=== PATIENT | female | born 1935 | race Caucasian/White ===

== ENCOUNTER 2020-11-13 09:56 | Observation (INO) | payer MEDICARE, BC ==
[~2020-11-13] VITALS: Ht 157.5 cm; Wt 43.4 kg
[2020-11-13 10:28] LABS: BASO # 0.1 (0.0-0.2); BASO % 0.3 % (0.0-2.0); EOS # 0.1 (0.0-0.7); EOS % 0.3 % (0-4.0); GRAN # 15.5 (1.4-6.5); GRAN % 82.6 % (42.2-75.2); HEMATOCRIT 39.5 % (37.0-47.0); HEMOGLOBIN 12.8 g/dl (12.5-16.0); LYMPH # 1.9 (1.2-3.4); LYMPH % 10.3 % (20.0-51.0); MEAN CELL VOLUME 102 fl (80.0-100.0); MEAN CORPUSCULAR HEMOGLOBIN 33 pg (27.0-31.0); MEAN CORPUSCULAR HGB CONC 32 g/dl (33.0-37.0); MEAN PLATELET VOLUME 8.8 fl (7.4-10.4); MONO # 1.1 (0.1-0.6); MONO % 5.6 % (1.7-9.3); PLATELET COUNT 338 K/mm3 (130-400); RED BLOOD COUNT 3.87 M/mm3 (4.10-5.30); REDCELL DISTRIBUTION WIDTH-CV 13.2 % (11.5-14.5)
[2020-11-13 10:36] LABS: ALBUMIN 4.1 gm/dL (3.5-5.0); BILIRUBIN,TOTAL 0.5 mg/dL (0.0-1.0); CALCIUM 9.7 mg/dL (8.4-10.2); CREATININE, serum 0.77 (0.52-1.25); POTASSIUM 4.2 mmol/L (3.4-5.0); TOTAL PROTEIN 8.9 gm/dL (6.4-8.2)
[2020-11-13] MEDS ORDERED: TYLENOL 8 HR PO (10:39)
[2020-11-13] MEDS ORDERED: TIMOPTIC 0.25%-5 OP (10:39)
[2020-11-13 10:51] LABS: COLLECTION METHOD CLEAN CATCH
[2020-11-13 11:02] LABS: MUCOUS Present /lpf; PH 7 (5-8); SQUAMOUS EPITHELIAL 0-2 /hpf; URINE APPEARANCE Clear; URINE BACTERIA None Seen /hpf; URINE BILIRUBIN Negative (NEGATIVE); URINE BLOOD Negative (NEGATIVE); URINE COLOR Yellow; URINE GLUCOSE Negative (NEGATIVE); URINE KETONE Negative (NEGATIVE); URINE LEUKOCYTE ESTERASE Trace (NEGATIVE); URINE NITRATE Negative (NEGATIVE); URINE PROTEIN(semi-quant) Negative (NEGATIVE); URINE RBC 0-2 /hpf; URINE UROBILINOGEN Negative (NEGATIVE)
--- NOTE | 2020-11-13 12:48 | NUR ---
SW will meet with patient and patient's son to provide home health resource packet. Nothing follows.
[2020-11-13] MEDS ORDERED: ZIOPTAN OU (15:18)
[2020-11-13] MEDS ORDERED: PRESERVISION1 SGL PO (15:19)
[2020-11-13] MEDS ORDERED: ORAL PAIN REL9.35 GM MM (15:20)
[2020-11-13] MEDS ORDERED: ROBITUSSIN100 MG/5 M PO (15:20)
[2020-11-13 16:33] VITALS: BP 120/70; PULSE 86; TEMP 97.6
[2020-11-13 17:05] VITALS: BP 120/60; BP 120/70; PULSE 83; PULSE 88; TEMP 97.6
[2020-11-13 17:07] VITALS: BP 98/41; PULSE 80; TEMP 97.6
--- NOTE | 2020-11-13 18:34 | NUR ---
PATIENT HAD QUIET DAY, INDEPENDANT IN ROOM. NO C/O OR NEEDS NOTED AT THIS TIME
--- NOTE | 2020-11-13 18:35 | NUR ---
PATIENT VERY PLESANT, EATS SOFT FOODS AND NEEDS ASSISTANCE WITH FOOD ORDERING HER EYESIGHT IS VERY POOR. PATIENT IS WEARING PANTIES WITH PADS FOR STRESS INCONTINENCE WITH COUGHING. UP TO BS WITH ASSIST OF 1. NO NEEDS AT THIS TIME.
[2020-11-13 19:41] VITALS: BP 125/44; PULSE 92; TEMP 98.2
--- NOTE | 2020-11-13 20:45 | NUR ---
Patient assessed at this time. Alert and oriented x 4, and able to make needs known. Complained of aching all over. Given PRN Acetaminophen per orders. Peripheral IV to left forearm with fluids running per orders. Site without redness, warmth, swelling, and pain. Denies SOB and dsypnea. LS CTA. Respirations even and unlabored. HRR. Capillary refill less than 3 seconds. Non-tenting skin turgor. BSAx4. Abdomen soft and non-tender. No edema. Voices no questions, needs, or concerns at this time. Resting in bed with call light within reach.
[2020-11-13 23:51] VITALS: BP 109/51; PULSE 86; TEMP 98.2
[2020-11-14 04:39] VITALS: BP 134/56; PULSE 86; TEMP 98.8
--- NOTE | 2020-11-14 05:50 | NUR ---
Patient has not had any further complaints of pain or discomfort this shift. Has been resting in bed with call light within reach. IV fluids continue per orders. Voices no questions, needs, or concerns at this time.
[2020-11-14 06:25] LABS: BASO % 0.2 % (0.0-2.0); EOS # 0.2 (0.0-0.7); EOS % 1.4 % (0-4.0); GRAN # 11.6 (1.4-6.5); GRAN % 78.4 % (42.2-75.2); LYMPH # 1.9 (1.2-3.4); MEAN CELL VOLUME 104 fl (80.0-100.0); MEAN CORPUSCULAR HGB CONC 32 g/dl (33.0-37.0); MEAN PLATELET VOLUME 9.1 fl (7.4-10.4); MONO # 0.9 (0.1-0.6); MONO % 6.3 % (1.7-9.3); PLATELET COUNT 259 K/mm3 (130-400); RED BLOOD COUNT 3.15 M/mm3 (4.10-5.30); REDCELL DISTRIBUTION WIDTH-CV 13.3 % (11.5-14.5)
[2020-11-14 06:26] LABS: HEMATOCRIT 32.6 % (37.0-47.0); HEMOGLOBIN 10.3 g/dl (12.5-16.0); MEAN CORPUSCULAR HEMOGLOBIN 33 pg (27.0-31.0)
[2020-11-14 06:41] LABS: CALCIUM 8.4 mg/dL (8.4-10.2); CREATININE, serum 0.62 (0.52-1.25); POTASSIUM 3.9 mmol/L (3.4-5.0)
[2020-11-14 08:21] VITALS: BP 138/61; PULSE 104; TEMP 99.2
--- NOTE | 2020-11-14 08:44 | NUR ---
ARSEN met with patient Anthony on 11/13/2020. Son reports that patient has been falling at home and will jut slip out of chair. Patient reports that home health is not enough care for patient. Son indicated that the patient requires more care than what she has and they cannot provide the care in her home. ARSEN educated that casemanagement will start to work on a plan of action for patient to enter [facility] if they are both agreeable to the plan. Restaffed to new nurse case manager to follow-up with client.
--- NOTE | 2020-11-14 10:33 | NUR ---
Assessment completed, alert/oriented, vital signs stable, denies pain or discomfort, WBC 14.8 this morning but afebrile, labs/ Cx pending, social work follwoing for discharge planning, patient denies other needs at this time, bed alarm is set and call light in reach
--- NOTE | 2020-11-14 12:17 | NUR ---
First visit from the nursing home aide. No needs right now.
[2020-11-14 12:24] VITALS: BP 117/93; PULSE 86
--- NOTE | 2020-11-14 14:20 | NUR ---
Per ARSEN Gil son Fran requested a call from concerning status and to review why pt is OBS vs INPT status. I called Fran and discussed with him the parameters for status per [facility]. At this time pt is OBS status. I answered all of the son's questions and he voiced understanding. I encouraged him to speak with Louise once again concerning the discharge plans for his mom.
[2020-11-14 14:59] VITALS: BP 143/57; PULSE 93; TEMP 98.6
--- NOTE | 2020-11-14 15:34 | NUR ---
Chief Of Vital Statistics contacted patient's son, Antonio (ph#[phone]) to follow up on discharge planning. Antonio advised that patient was staying in a assisted in [place] (he cannot remember the name off hand) until February 2020. Antoino and his had patient move in with them due to concerns about COVID. Antonio states patient hadn't been using a walker until about three weeks ago after patient had a visit with her daughter. Antonio reports that since then patient has been really weak and has had a couple falls at home. Antonio advised that patient has DPOA-HC that designates him and his two sisters, Robyn and Lexie. Antonio will try to bring in a copy next time he is up to visit. Antonio reports patient was normally independent with most ADLS and that as long as patient can take care of herself, they are willing to have her live with them. Antonio states that his , Lillian normally helps patient bathe and they prepare meals for patient. Antonio states based on what patient is doing right now, he does not feel they can care for her at home at this time. Antonio is interested in post acute rehab for patient. ARSEN explained to Antonio that patient is observation status and that without three inpatient midnights, patient would have to private pay for a assisted. Antonio would like referrals sent to [facility], [facility] in , and [facility] in [place]. Antonio would like these facilities to contact him to discuss pricing. Antonio did not want referral sent to [facility] as he felt their rates were too expensive. Antonio stated that he felt paying for care at home would be about the same cost as these facilities are so expensive. ARSEN advised Antonio that there are private duty agencies that can staff in the home, but that it can be difficult to arrange for 24 hour care based on agency staffing. ARSEN also advised that she would send a referral to [facility]. Antonio inquired about potential discharge date. ARSEN advised that typical obs stay is about two days and that patient would likely be ready for discharge soon. Antonio verbalized understanding. ARSEN contacted [facility], and [facility] then faxed referrals. ARSEN then contacted Nellie, IPR Director to give referral. SW will continue to follow.
[2020-11-14 19:49] VITALS: BP 120/48; PULSE 67; TEMP 97.6
--- NOTE | 2020-11-14 20:30 | NUR ---
Patient assessed at this time. Alert and oriented x 4, and able to make needs known. Reports pain to back. Given PRN Acetaminophen as requested. Peripheral IV to left forerm with fluids running per orders. Site without redness, warmth, swelling, and pain. Denies having SOB and dyspnea. On oxygen at 2 L/min via [place]. Respirations even and unlabored. HRR. Capillary refill less than 3 seconds. Non-tenting skin turgor. BSAx4. Abdomen soft and non-tender. No edema. Patient concerned about her eye drop. Stated that they were brought in and given to someone named "Jose Armando" to put in the fridge. This nurse looked in med room fridge, and had warehouse stock clerk look in pharmacy, but unable to locate eye drops. Voices no further questions, needs, or concerns at this time. Resting in bed with call light within reach.
[2020-11-14 23:48] VITALS: BP 118/52; PULSE 72; TEMP 97.9
[2020-11-15 04:10] VITALS: BP 143/56; PULSE 88; TEMP 98.3
--- NOTE | 2020-11-15 05:57 | NUR ---
Patient has been resting in bed with call light within reach. Received PRN Acetaminophen once this shift as requested for back ache. IV fluids continue per orders. Voices no questions, needs, or concerns at this time.
[2020-11-15 06:57] LABS: BASO % 0.3 % (0.0-2.0); EOS # 0.3 (0.0-0.7); EOS % 2.5 % (0-4.0); GRAN # 8.7 (1.4-6.5); GRAN % 76.1 % (42.2-75.2); LYMPH # 1.5 (1.2-3.4); LYMPH % 12.9 % (20.0-51.0); MEAN CELL VOLUME 103 fl (80.0-100.0); MEAN CORPUSCULAR HGB CONC 32 g/dl (33.0-37.0); MEAN PLATELET VOLUME 9.4 fl (7.4-10.4); MONO # 0.9 (0.1-0.6); MONO % 7.7 % (1.7-9.3); PLATELET COUNT 252 K/mm3 (130-400); RED BLOOD COUNT 2.82 M/mm3 (4.10-5.30); REDCELL DISTRIBUTION WIDTH-CV 13.2 % (11.5-14.5)
[2020-11-15 06:58] LABS: HEMATOCRIT 29.1 % (37.0-47.0); HEMOGLOBIN 9.4 g/dl (12.5-16.0); MEAN CORPUSCULAR HEMOGLOBIN 33 pg (27.0-31.0)
[2020-11-15 07:05] LABS: CALCIUM 8.4 mg/dL (8.4-10.2); CREATININE, serum 0.53 (0.52-1.25); POTASSIUM 3.9 mmol/L (3.4-5.0)
[2020-11-15 07:22] VITALS: BP 148/63; PULSE 93; TEMP 99.3
[2020-11-15 10:27] VITALS: BP 128/45; PULSE 88
[2020-11-15 10:28] VITALS: BP 129/60; BP 129/65; PULSE 100; PULSE 98
--- NOTE | 2020-11-15 10:37 | NUR ---
Assessment completed, alert/oriented, vital signs stable/ Orthostatic VS checked and no changes noted/ dsicussed with hospitalist, reports chronic back pain /Tylenol given, blood cx pending still, discharge planning in process, IPR screen vs. SNF, will continue to monitor
[2020-11-15 11:29] VITALS: BP 102/48; PULSE 76; TEMP 98.3
[2020-11-15 13:45] VITALS: BP 102/48; PULSE 76; TEMP 98.3
--- NOTE | 2020-11-15 14:30 | NUR ---
Patient transferring to [facility] in [place], I have called and given report to recieving nurse ALISA Danielle, IV removed and patient leaving with transportation personel at this time
--- NOTE | 2020-11-15 15:28 | NUR ---
Air Conditioning Technician followed up with Nellie, [facility] Director who met with patient and they cannot accept referral at this time. ARSEN spoke with both Cori at [facility] and Garrison at [facility], both can accept for a private pay stay. ARSEN contacted patient's son, Antonio to follow up and Antonio's preference is [facility] in [place]. ARSEN and Antonio met with patient to review discharge plan. Patient is agreeable to a short term stay at [facility]. Patient and Antonio both understand that this stay will be private pay. ARSEN collaborated with Cori at [facility] who spoke with patient's son and will get patient set up with Dr. Cordero, primary care physician in [place]. Transportation set for 1430. ARSEN notified Cori that patient is on one liter of oxygen. ARSEN faxed discharge orders to Cori at [facility].
== END 2020-11-15 15:37 ==
LOC: COL.ER 09:56 → MEDICAL 13:10 → EDBEDREQ 13:54 → MEDICAL 14:39
PROVIDERS: Family Medicine; ADMIT Student in an Organized Health Care Education/Training Program
DX: I95.1 Orthostatic hypotension (principal); R05 Cough; D72.829 Elevated white blood cell count, unspecified; G89.29 Other chronic pain; M54.9 Dorsalgia, unspecified; M48.56XA Collapsed vertebra, not elsewhere classified, lumbar region, initial encounter for fracture; Z96.641 Presence of right artificial hip joint; W01.0XXA Fall on same level from slipping, tripping and stumbling without subsequent striking against object, initial encounter; Z79.899 Other long term (current) drug therapy; Z87.891 Personal history of nicotine dependence; Z91.018 Allergy to other foods; Z91.011 Allergy to milk products
CPT/HCPCS: 99239; G0378; J1650; J2405; J7030